=== PATIENT | female | born 1990 | race African-American/Black ===

== ENCOUNTER 2017-07-04 15:58 | Inpatient (IN) ==
[2017-07-04] MEDS ORDERED: MEPERIDINE 50 MG/1 ML VIAL IV PRN (16:30)
[2017-07-04] MEDS ORDERED: BUTORPHANOL 2 MG/ML VIAL IV PRN (16:30)
[2017-07-04] MEDS ORDERED: ONDANSETRON 4 MG/2 ML VIAL IV PRN (16:30)
[2017-07-04] MEDS ORDERED: DINOPROSTONE VAG GEL 10 MG SYRINGE VAG ONE (16:32)
[2017-07-04 17:10] LABS: Basophils % 0.2 % (0.0-0.8); Eosinophils % 0.2 % (0.00-10.9); Hematocrit 34.8 VOL% (35.7-47.0); Hemoglobin 12.1 GM/DL (12.0-16.0); Immature Granulocytes % 0.2 %; Immature Granulocytes Absolute 0.01 #; Lymphocytes # 1.1 10*3/uL (1.4-4.0); Lymphocytes % 19.5 % (21.3-54.2); Mean Corpuscular HGB Conc 34.8 GM/DL (32-36); Mean Corpuscular Hemoglobin 28 PG (27-34); Mean Corpuscular Volume 80.6 FL (87-102); Monocytes # 0.4 10*3/uL (0.11-0.8); Monocytes % 7.8 % (1.7-12.7); Neutrophils # 4.1 10*3/uL (1.4-7.4); Neutrophils % 72.1 % (38.7-73.9); Platelet Count 180 T/CUMM (130-400); Red Blood Count 4.32 MC/CUMM (3.8-5.5); Red Cell Distribution Width 13.8 % (9.3-17.3); White Blood Count 5.6 T/CUMM (4-12)
[2017-07-04] MEDS: LACTATED RINGERS 1,000 ML IV SCH (22:28)
[2017-07-04] MEDS ORDERED: diphenhydrAMINE 50 MG/1 ML VIAL IV PRN (23:45)
[2017-07-04] MEDS ORDERED: fentaNYL 2 MCG/ROPIV 0.2% EPID 150 ML EPIDURAL SCH (23:45)
[2017-07-04] MEDS ORDERED: ePHEDrine 50 MG/ML AMP IV PRN (23:52)
[2017-07-05] MEDS ORDERED: FAMOTIDINE 20 MG/2 ML VIAL IV ONE
[2017-07-05] MEDS ORDERED: CITRIC ACID/SODIUM CITRATE 30 ML UDCUP PO ONE
[2017-07-05] MEDS: LACTATED RINGERS 1,000 ML IV SCH (00:46)
[2017-07-05] MEDS ORDERED: OXYTOCIN/LR 20 UNIT/1,000 ML BAG IV SCH (02:00)
[2017-07-05] MEDS ORDERED: MEASLES/MUMPS/RUBELLA VACCINE 0.5 ML VIAL SUBCUT ONE (08:30)
[2017-07-05] MEDS ORDERED: LANOLIN 50% CREAM 0.3 OZ TUBE TOP PRN (08:30)
[2017-07-05] MEDS ORDERED: DIPH/TET/ACEL PERT BOOSTER VACCINE 0.5 ML VIAL IM ONE (08:30)
[2017-07-05] MEDS ORDERED: OXYTOCIN/LR 20 UNIT/1,000 ML BAG IV ONE (08:30)
[2017-07-05] MEDS ORDERED: BENZOCAINE 20%/MENTHOL 0.5% SPRAY 56 GM CAN TOP PRN (08:30)
[2017-07-05] MEDS ORDERED: BISACODYL 10 MG SUPP RECTAL PRN (08:30)
[2017-07-05] MEDS ORDERED: HYDROCORTISONE 2.5% RECTAL CREAM 30 GM TUBE TOP PRN (08:30)
[2017-07-05] MEDS ORDERED: WITCH HAZEL PADS 100/JAR TOP PRN (08:30)
[2017-07-05] MEDS ORDERED: oxyCODONE/ACETAMINOPHEN 5-325 MG TABLET PO PRN (08:30)
[2017-07-05] MEDS ORDERED: ACETAMINOPHEN 325 MG TABLET PO PRN (08:30)
[2017-07-05] MEDS ORDERED: RHO(D) IMMUNE GLOBULIN 300 MCG SYRINGE IM ONE (08:30)
[2017-07-05] MEDS ORDERED: ACETAMINOPHEN/CODEINE 300-30 MG TABLET PO PRN (08:30)
[2017-07-05] MEDS: IBUPROFEN 800 MG TABLET PO PRN (16:28)
[2017-07-05] MEDS: oxyCODONE/ACETAMINOPHEN 5-325 MG TABLET PO PRN (16:28)
[2017-07-05] MEDS: DOCUSATE SODIUM 100 MG CAPSULE PO SCH (21:27)
[2017-07-06 06:34] LABS: Basophils % 0.3 % (0.0-0.8); Eosinophils # 0.1 10*3/uL (0.0-0.87); Eosinophils % 0.8 % (0.00-10.9); Hematocrit 32.9 VOL% (35.7-47.0); Immature Granulocytes % 0.6 %; Immature Granulocytes Absolute 0.04 #; Lymphocytes # 1.6 10*3/uL (1.4-4.0); Lymphocytes % 26.1 % (21.3-54.2); Mean Corpuscular HGB Conc 33.4 GM/DL (32-36); Mean Corpuscular Hemoglobin 28 PG (27-34); Mean Corpuscular Volume 83.5 FL (87-102); Mean Platelet Volume 12.1 FL (9.6-12.0); Monocytes # 0.6 10*3/uL (0.11-0.8); Monocytes % 9.7 % (1.7-12.7); Neutrophils # 3.9 10*3/uL (1.4-7.4); Neutrophils % 62.5 % (38.7-73.9); Platelet Count 144 T/CUMM (130-400); Red Blood Count 3.94 MC/CUMM (3.8-5.5); Red Cell Distribution Width 13.8 % (9.3-17.3); White Blood Count 6.2 T/CUMM (4-12)
[2017-07-06] MEDS: DOCUSATE SODIUM 100 MG CAPSULE PO SCH ×2 (09:13→22:30)
[2017-07-06] MEDS: IBUPROFEN 800 MG TABLET PO PRN (09:14)
[2017-07-07] MEDS: DOCUSATE SODIUM 100 MG CAPSULE PO SCH (07:47)
[2017-07-07] MEDS: oxyCODONE/ACETAMINOPHEN 5-325 MG TABLET PO PRN (07:48)
[2017-07-07] MEDS: IBUPROFEN 800 MG TABLET PO PRN (07:48)
[2017-07-07] MEDS ORDERED: ONDANSETRON 4 MG/2 ML VIAL IV PRN (11:04)
[2017-07-07] MEDS ORDERED: ONDANSETRON 4 MG/2 ML VIAL ONE (11:08)
[2017-07-07 12:03] VITALS: BP 121/69
== END 2017-07-07 19:05 | disposition home or self-care (01) | DRG 560 ==
LOC: N.LD 15:58 → N.OB 07-05 09:35
PROVIDERS: ADMIT Obstetrics & Gynecology; ATTEND Obstetrics & Gynecology

== ENCOUNTER 2020-04-23 06:21 | Inpatient (IN) ==
[2020-04-23] MEDS ORDERED: ONDANSETRON 4 MG/2 ML VIAL IV PRN ×2 (06:28→13:59)
[2020-04-23] MEDS ORDERED: LACTATED RINGERS 1,000 ML IV SCH (06:30)
[2020-04-23 07:10] LABS: Basophils % 0.2 % (0.0-0.8); Eosinophils % 0.4 % (0.00-10.9); Hematocrit 35.1 VOL% (35.7-47.0); Hemoglobin 11.7 GM/DL (12.0-16.0); Immature Granulocytes % 0.4 %; Immature Granulocytes Absolute 0.02 #; Lymphocytes # 1.5 10*3/uL (1.4-4.0); Lymphocytes % 28.2 % (21.3-54.2); Mean Corpuscular HGB Conc 33.3 GM/DL (32-36); Mean Corpuscular Volume 81.8 FL (87-102); Mean Platelet Volume 11.3 FL (9.6-12.0); Monocytes % 8.4 % (1.7-12.7); Neutrophils % 62.4 % (38.7-73.9); Platelet Count 185 T/CUMM (130-400); Red Blood Count 4.29 MC/CUMM (3.8-5.5); Red Cell Distribution Width 14.2 % (9.3-17.3); White Blood Count 5.4 T/CUMM (4-12)
[2020-04-23] MEDS ORDERED: ACETAMINOPHEN 325 MG TABLET PO PRN ×2 (07:28→13:59)
[2020-04-23] MEDS ORDERED: LACTATED RINGERS 250 ML IV ONE (07:28)
[2020-04-23] MEDS ORDERED: OXYTOCIN/LR 20 UNIT/1,000 ML BAG IV SCH (07:30)
[2020-04-23 07:50] LABS: Alanine Aminotransferase 15 U/L (13-56); Albumin 2.6 G/DL (3.4-5.0); Alkaline Phosphatase 159 U/L (45-117); Aspartate Amino Transferase 19 U/L (0-37); Bilirubin,Total < 0.39 MG/DL (0.2-1.0); Blood Urea Nitrogen 8 MG/DL (7-18); Calcium 8.7 MG/DL (8.5-10.1); Carbon Dioxide 18 MMOL/L (21-32); Estimated Glom Filtration Rate 155 ML/MIN; Glucose 90 MG/DL (74-106); Osmolality,Calculated 270.8 MOS/KG (273-304); Potassium 3.6 MMOL/L (3.5-5.1); Sodium 137 MMOL/L (136-145); Total Protein 6.8 G/DL (6.4-8.3)
[2020-04-23] MEDS ORDERED: ePHEDrine 50 MG/ML VIAL IV PRN (08:26)
[2020-04-23] MEDS ORDERED: NALOXONE 0.4 MG/ML VIAL IV PRN (08:26)
[2020-04-23] MEDS ORDERED: CITRIC ACID/SODIUM CITRATE 30 ML UDCUP PO ONE (08:27)
[2020-04-23] MEDS ORDERED: FAMOTIDINE 20 MG/2 ML VIAL IV ONE ×2 (08:27→08:29)
[2020-04-23] MEDS ORDERED: ePHEDrine 50 MG/ML VIAL ONE (08:29)
[2020-04-23] MEDS ORDERED: fentaNYL 2 MCG/ROPIV 0.2% EPID 100 ML EPIDURAL ONE (08:29)
[2020-04-23] MEDS ORDERED: fentaNYL 2 MCG/ROPIV 0.2% EPID 100 ML EPIDURAL SCH (08:30)
[2020-04-23] MEDS ORDERED: TRANEXAMIC ACID 1,000 MG/10 ML VIAL ONE (11:27)
[2020-04-23] MEDS ORDERED: miSOPROStoL 200 MCG TABLET ONE (11:27)
[2020-04-23] MEDS ORDERED: METHYLERGONOVINE 0.2 MG/1 ML AMP ONE (11:28)
[2020-04-23] MEDS ORDERED: CARBOPROST TROMETHAMINE 250 MCG/ML AMP IM ONE (11:28)
[2020-04-23] MEDS ORDERED: RHO(D) IMMUNE GLOBULIN 300 MCG SYRINGE IM ONE (13:59)
[2020-04-23] MEDS ORDERED: OXYTOCIN/LR 20 UNIT/1,000 ML BAG IV ONE (13:59)
[2020-04-23] MEDS ORDERED: DIPH/TET/ACEL PERT BOOSTER VACCINE 0.5 ML VIAL IM ONE (13:59)
[2020-04-23] MEDS ORDERED: BISACODYL 10 MG SUPP RECTAL PRN (13:59)
[2020-04-23] MEDS ORDERED: MEASLES/MUMPS/RUBELLA VACCINE 0.5 ML VIAL SUBCUT ONE (13:59)
[2020-04-23] MEDS ORDERED: BENZOCAINE 20%/MENTHOL 0.5% SPRAY 56 GM CAN TOP PRN (13:59)
[2020-04-23] MEDS ORDERED: WITCH HAZEL PADS 100/JAR TOP PRN (13:59)
[2020-04-23] MEDS ORDERED: LANOLIN 50% CREAM 0.3 OZ TUBE TOP PRN (13:59)
[2020-04-23] MEDS ORDERED: HYDROCORTISONE 2.5% RECTAL CREAM 30 GM TUBE TOP PRN (13:59)
[2020-04-23 14:01] LABS: Cord Venous Blood HCO3 21.9 MMOL/L; Cord Venous Blood PCO2 44.6 MMHG; Cord Venous Blood PO2 30.8
[2020-04-23] MEDS: IBUPROFEN 800 MG TABLET PO PRN (15:21)
[2020-04-23] MEDS: ACETAMINOPHEN/CODEINE 300-30 MG TABLET PO PRN (16:39)
[2020-04-23] MEDS: DOCUSATE SODIUM 100 MG CAPSULE PO SCH (21:23)
[2020-04-23] MEDS: SERTRALINE 50 MG TABLET PO SCH (22:06)
[2020-04-24] MEDS: ACETAMINOPHEN/CODEINE 300-30 MG TABLET PO PRN ×4 (00:01→20:37)
[2020-04-24] MEDS: IBUPROFEN 800 MG TABLET PO PRN ×4 (01:00→23:32)
[2020-04-24 05:26] LABS: Basophils % 0.4 % (0.0-0.8); Eosinophils # 0.1 10*3/uL (0.0-0.87); Eosinophils % 0.7 % (0.00-10.9); Hematocrit 31.9 VOL% (35.7-47.0); Hemoglobin 10.7 GM/DL (12.0-16.0); Immature Granulocytes % 0.6 %; Immature Granulocytes Absolute 0.05 #; Lymphocytes # 1.8 10*3/uL (1.4-4.0); Lymphocytes % 21.7 % (21.3-54.2); Mean Corpuscular HGB Conc 33.5 GM/DL (32-36); Mean Corpuscular Volume 83.3 FL (87-102); Mean Platelet Volume 11.5 FL (9.6-12.0); Monocytes % 8.8 % (1.7-12.7); Neutrophils % 67.8 % (38.7-73.9); Platelet Count 169 T/CUMM (130-400); Red Blood Count 3.83 MC/CUMM (3.8-5.5); Red Cell Distribution Width 14.2 % (9.3-17.3); White Blood Count 8.5 T/CUMM (4-12)
[2020-04-24] MEDS: DOCUSATE SODIUM 100 MG CAPSULE PO SCH ×2 (09:24→20:37)
[2020-04-24] MEDS: MULTIVITAMIN (PRENATAL) TABLET PO SCH (09:37)
[2020-04-24] MEDS: SERTRALINE 50 MG TABLET PO SCH (21:48)
[2020-04-25] MEDS: MULTIVITAMIN (PRENATAL) TABLET PO SCH (08:34)
[2020-04-25] MEDS: ACETAMINOPHEN/CODEINE 300-30 MG TABLET PO PRN ×2 (08:34→12:46)
[2020-04-25] MEDS: DOCUSATE SODIUM 100 MG CAPSULE PO SCH (08:34)
[2020-04-25] MEDS: IBUPROFEN 800 MG TABLET PO PRN (08:34)
[2020-04-25 08:58] VITALS: BP 107/63
== END 2020-04-25 13:50 | disposition home or self-care (01) | DRG 560 ==
LOC: N.LD 06:21 → N.OB 16:22
PROVIDERS: ADMIT Obstetrics & Gynecology; ATTEND Obstetrics & Gynecology